=== PATIENT | female | born 1945 | race Caucasian/White ===

== ENCOUNTER → 2022-01-17 | Outpatient (CLI) | payer MEDICARE, BC ==
--- NOTE | 2022-01-17 11:53 | CA ---
Transthoracic Echo Report Name: Danielle Grimaldo Age: 77 Gender: F : 1945 Exam Date: 01/17/2022 09:39 Exam Location: [facility] Ht (in): 63 Wt (lb): 125 Ordering Physician: Rickey Johnson DO Attending/Referring Phys: Marah Martin [facility], [facility]–1983 Drawing Checker Meggan Mason RDCS Procedure CPT: Indications: R01.1 Murmur, I45.4, R42 Dizziness Cardiac Hx: Hx of murmur Technical Quality: Good Contrast 1: Total Dose (mL): Contrast 2: Total Dose (mL): MEASUREMENTS (Male / Female) Normal Values 2D ECHO LV Diastolic Diameter PLAX 3.5 cm 4.2 - 5.9 / 3.9 - 5.3 cm LV Systolic Diameter PLAX 2.8 cm IVS Diastolic Thickness 1.2 cm 0.6 - 1.0 / 0.6 - 0.9 cm LVPW Diastolic Thickness 1.1 cm 0.6 - 1.0 / 0.6 - 0.9 cm LV Relative Wall Thickness 0.7 RV Internal Dim ED PLAX 2.0 cm LV Diastolic Volume MOD BP 61.1 cm??? 67 - 155 / 56 - 104 cm??? LV Systolic Volume MOD BP 18.3 cm??? 22 - 58 / 19 - 49 cm??? LV Ejection Fraction MOD BP 70.0 % >= 55 % LV Cardiac Index MOD BP 1559.8 cm???/min???m??? LV Diastolic Volume MOD 4C 81.9 cm??? LV Systolic Volume MOD 4C 26.3 cm??? LV Ejection Fraction MOD 4C 67.9 % LV Cardiac Index MOD 4C 2026.2 cm???/min???m??? LV Diastolic Length 4C 8.2 cm LV Systolic Length 4C 5.7 cm LV Diastolic Volume MOD 2C 39.6 cm??? LV Systolic Volume MOD 2C 12.7 cm??? LV Ejection Fraction MOD 2C 67.8 % LV Cardiac Index MOD 2C 978.1 cm???/min???m??? LV Diastolic Length 2C 6.8 cm LV Systolic Length 2C 5.9 cm LA Volume 28.7 cm??? 18 - 58 / 22 - 52 cm??? M-MODE Aortic Root Diameter MM 2.8 cm LA Systolic Diameter MM 2.4 cm LA Ao Ratio MM 0.9 MV E Point Septal Separation 0.7 cm AV Cusp Separation MM 1.5 cm DOPPLER AV Peak Velocity 128.1 cm/s AV Peak Gradient 6.6 mmHg AI Peak Velocity 303.4 cm/s AI Peak Gradient 36.8 mmHg AI Pressure Half Time 368.1 ms MV Area PHT 3.2 cm??? MR Peak Velocity 436.2 cm/s MR Peak Gradient 76.1 mmHg Mitral E Point Velocity 71.3 cm/s Mitral A Point Velocity 97.1 cm/s Mitral E to A Ratio 0.7 MV Deceleration Time 234.6 ms MV E' Velocity 3.4 cm/s Mitral E to MV E' Ratio 20.7 TR Peak Velocity 226.5 cm/s TR Peak Gradient 20.5 mmHg Right Ventricular Systolic Press 24.2 mmHg PV Peak Velocity 110.9 cm/s PV Peak Gradient 4.9 mmHg PI Peak Gradient 9.4 mmHg FINDINGS Left Ventricle Mildly increased septal wall thickness. Mildly increased posterior wall thickness. Possible left bundle branch block. Left ventricular ejection fraction is estimated at 55-60 %. Grade 1 diastolic dysfunction. Right Ventricle The right ventricle is normal in size and function. Right Atrium The right atrium is normal in size. Left Atrium The left atrium is normal in size. Mitral Valve Structurally normal mitral valve without significant stenosis or prolapse. There is mild mitral regurgitation. Aortic Valve Structurally normal aortic valve without significant sclerosis or stenosis. There is trace aortic regurgitation. Tricuspid Valve Structurally normal tricuspid valve without significant stenosis. Pulmonary artery systolic pressure is normal. Mild tricuspid regurgitation. Pulmonic Valve Structurally normal pulmonic valve without significant stenosis. There is mild pulmonic regurgitation. Pericardium Normal pericardium without effusion. Aorta Normal aortic root dimension. CONCLUSIONS Mild LVH Normal left ventricular EF 55-60% Mild mitral regurgitation Trace aortic regurgitation Mild tricuspid regurgitation No pericardial effusion Previewed by: Dr. Hector Wayne DO (Electronically Signed) Final Date: 17 January 2022 11:52
--- NOTE | 2022-01-17 12:42 | US ---
EXAMINATION TYPE: US carotid duplex BILAT DATE OF EXAM: 01/17/2022 COMPARISON: NONE CLINICAL HISTORY: R42 DIZZINESS AND GIDDINESS. HTN controlled with meds. Dizzy per patient. TECHNIQUE: Carotid duplex ultrasound examination. Indirect Doppler criteria was utilized. FINDINGS: EXAM MEASUREMENTS: RIGHT: Peak Systolic Velocity (PSV) cm/sec ----- Right CCA: 72.1 ----- Right ICA: 104.7 ----- Right ECA: 143.1 ICA/CCA ratio: 1.5 RIGHT: End Diastole cm/sec ----- Right CCA: 18.2 ----- Right ICA: 32.2 ----- Right ECA: 18.7 LEFT: Peak Systolic Velocity (PSV) cm/sec ----- Left CCA: 71.2 ----- Left ICA: 138.7 ----- Left ECA: 58.4 ICA/CCA ratio: 1.9 LEFT: End Diastole cm/sec ----- Left CCA: 23.2 ----- Left ICA: 48.3 ----- Left ECA: 0.0 VERTEBRALS (direction of flow): Right Vertebral: Antegrade Left Vertebral: Antegrade Rhythm: Normal SOUS [employer] KITCHEN MANAGER NOTES: No plaque visualized. No significant stenosis. Elevated right ECA and left dista l ICA velocities. IMPRESSION: No definite significant hemodynamic stenosis visualized. Criteria for Assigning % of Stenosis / Diameter reduction (Estimation based on the indirect measurements of the internal carotid artery velocities (ICA PSV). 1. Normal (no stenosis)=ICA PSV < 125 cm/s: ratio < 2.0: ICA EDV<40 cm/s. 2. Less than 50% stenosis=ICA PSV < 125 cm/s: ratio < 2.0: ICA EDV<40 cm/s. 3. 50 to 69% stenosis=ICA PSV of 125 to 230 cm/s: ration 2.0 ? 4.0: ICA EDV 40-100 cm/s. 4. Greater than 70% stenosis to near occlusion= ICA PSV > 230 cm/s: ratio > 4.0: ICA EDV > 100 cm/s. 5. Near occlusion= ICA PSV velocities may be low or undetectable: variable ratio and ICA EDV. 6. Total occlusion=unable to detect flow.
--- NOTE | 2022-01-17 13:12 | CA ---
Stress Echo Report Danielle Grimaldo Age: 77 Gender: F : 1945 Exam Date: 01/17/2022 11:22 Exam Location: [facility] Ht (in): 63 Wt (lb): 122 Ordering Physician: Rickey Johnson DO Referring Physician: Marah Martin [facility] [employer]: Renetta May RDCS Technologist Procedure CPT: Indication: R01.1 Murmur, I45.4, R42 Dizziness ICD-9 Codes: Rhythm: Patient History: Cardiac Medications: Medications in past 24 hours: Contrast: Stress Results Protocol: Yahir Total dose(mL): Exercise Duration (min:sec): Max ST Depression (mm): Angina Score: Moreno Score: METS: 7.1 Resting HR: 61 Resting BP: 126 / 83 Peak HR: 134 Peak BP: 182 / 85 Max Predicted HR: 141 95 % Max Predicted HR Target HR: 120 Double Product: [id number] Stress Summary: BP Response: Reason for Termination: Reached target heart rate or work-load Cardiac Symptoms: Test terminated after reaching target heart rate (85% max predicted) ECG Analysis Resting ECG: Stress ECG: Arrhythmia: Echo Analysis Resting Echo: Peak Echo Analysis: MEASUREMENTS (Male/Female) Normal Values CONCLUSIONS Patient underwent exercise stress echo with a Yahir protocol treadmill stress test. Patient exercised into Stage 2 for a total of 6 minutes 5 seconds reaching a total of 7.1 METS. Patient's maximum heart rate was 134 which represented 95 % age- predicted maximum heart rate. Stress EKG portion: At baseline patient's EKG showed normal sinus rhythm with left bundle branch block. At peak exercise, EKG showed and no significant change from baseline. Stress echo portion: 2-D echocardiogram was performed in the parasternal long, personal short, apical 2 and apical four-chamber views at rest, peak exercise and in recovery. At baseline, echocardiogram showed left ventricular ejection fraction 50% without wall motion abnormalities. With peak exercise, echocardiogram shows moderate sized mid to apical anterior, apical and apical inferior hypokinesis consistent with ischemia. Conclusions: 1. Abnormal stress echo with moderate size inducible apical anterior and apical inferior hypokinesis consistent with ischemia. 2. Left bundle-branch block 3. Fair exercise capacity. Dr. Hector Wayne DO (Electronically Signed) Final Date: 17 January 2022 13:11
== END | disposition home or self-care (01) ==
LOC: RADNMMAIN 09:23
PROVIDERS: ATTEND Family Medicine
DX: I08.3 Combined rheumatic disorders of mitral, aortic and tricuspid valves (principal); I44.7 Left bundle-branch block, unspecified; R42 Dizziness and giddiness
CPT/HCPCS: 93306; 93351; 93880

== ENCOUNTER 2022-02-12 07:29 | Day surgery (SDC) | payer MEDICARE, BC ==
[2022-02-08 12:18] VITALS: BMI 21.6
[~2022-02-12 07:29] MED LIST: ALPRAZolam 0.25 MG TAB PO PRN; ALPRAZolam 0.5 MG TAB PO PRN; ASPIRIN 325 MG TAB PO STA; ATORVASTATIN 80 MG TAB PO STA; HEPARIN SODIUM,PORCINE 10,000 UNIT in SODIUM CHLORIDE 0.9% 1,000 ML IRRIGATION PRN; HEPARIN SODIUM,PORCINE 2,500 UNIT in SODIUM CHLORIDE 0.9% 250 ML IRRIGATION PRN; NITROGLYCERIN SL TABS 0.4 MG TAB SUBLINGUAL PRN; SODIUM CHLORIDE 0.9% 1,000 ML in EMPTY BAG 1 BAG IV SCH
[2022-02-12 07:58] VITALS: RESP 18; TEMP 98
[2022-02-12 08:07] LABS: Basophils # (A) 0.1 k/uL (0-0.2); Basophils % (A) 1 %; Eosinophils # (A) 0.4 k/uL (0-0.7); Eosinophils % (A) 5 %; HCT 39.2 % (34.0-46.0); HGB 12.7 gm/dL (11.4-16.0); Lymphocytes # (A) 2.5 k/uL (1.0-4.8); Lymphocytes % (A) 32 %; MCH 29.7 pg (25.0-35.0); MCHC 32.3 g/dL (31.0-37.0); MCV 91.9 fL (80.0-100.0); Mean Platelet Volume 8.2; Monocytes # (A) 0.5 k/uL (0-1.0); Monocytes % (A) 6 %; Neutrophils # (A) 4.3 k/uL (1.3-7.7); Neutrophils % (A) 55 %; Platelet Count 291 k/uL (150-450); RBC 4.26 m/uL (3.80-5.40); RDW 13.4 % (11.5-15.5); WBC 7.9 k/uL (3.8-10.6)
[2022-02-12 08:18] LABS: Calcium 9.6 mg/dL (8.4-10.2); Potassium 4.1 mmol/L (3.5-5.1)
[2022-02-12] MEDS ORDERED: HEPARIN SODIUM 1,000 UN/ML (10ML VL) ONE (11:48)
[2022-02-12] MEDS ORDERED: VERAPAMIL 2.5 MG/ML 2 ML AMP ONE (11:48)
[2022-02-12] MEDS ORDERED: fentaNYL (PF) 50 MCG/ML 2 ML AMP ONE (11:48)
[2022-02-12] MEDS ORDERED: fentaNYL (PF) 50 MCG/ML 2 ML AMP IVP ONE (12:09)
[2022-02-12] MEDS ORDERED: MIDAZOLAM 2 MG/2 ML VIAL IVP ONE ×2 (12:09→12:18)
[2022-02-12] MEDS ORDERED: LIDOCAINE 1% INJ 10MG/ML (30 ML VIAL-PF) SQ ONE (12:11)
[2022-02-12] MEDS ORDERED: VERAPAMIL SYRINGE (5 MG/10 ML) INTRAARTER ONE ×2 (12:12→12:17)
[2022-02-12] MEDS ORDERED: HEPARIN SODIUM 1,000 UN/ML (10ML VL) IVP ONE (12:19)
[2022-02-12] MEDS ORDERED: IOPAMIDOL-370 125ML BTL INJ ONE (12:25)
--- NOTE | 2022-02-12 12:32 | P.CARDCATH ---
Description of Procedure: PROCEDURES PERFORMED: Left heart catheterization, bilateral coronary angiography INDICATION: Dyspnea on exertion concerning for unstable angina CONSENT:I have discussed the risks, benefits and alternative therapies for the above-mentioned procedure and for both sedation/analgesia as well as necessary blood product administration, if indicated, as they pertain to this patient. The patient has indicated understanding and acceptance of the risks and procedures discussed. PROCEDURE: After the risks, benefits and alternatives of the above mentioned procedure explained in detail with the patient, informed consent was obtained. Patient was taken to the catheterization lab and prepped and draped in usual fashion. 1% lidocaine was used to anesthetize the right radial artery. A 6- Palestinian sheath was placed in the right radial artery using modified Seldinger technique. Left coronary angiography was performed with a 5-Palestinian JL 3.5 catheter and right coronary angiography was performed with a 5-Palestinian JR5 catheter in various views. A 5-Palestinian FR5 catheter was inserted into the left ventricle and pressure measurements were obtained. The right radial sheath was removed and a TR band was placed with hemostasis achieved. The patient tolerated the procedure well. Patient was transported back to the post catheterization holding area in stable condition. Conscious Sedation: Patient was monitored under the direct supervision of vision of myself for conscious sedation using Versed and fentanyl for a total duration of 14 minutes HEMODYNAMICS: Aortic: 144/76 LV: 141/2, LVEDP 8 SELECTIVE CORONARY ARTERIOGRAPHY: LEFT MAIN: The left main is a large caliber vessel which bifurcates into the LAD and circumflex. There is no significant stenosis. LEFT ANTERIOR DESCENDING CORONARY ARTERY: LAD is a large caliber vessel which wraps around to the apex. There is mild 10% plaquing. LEFT CIRCUMFLEX CORONARY ARTERY: Left circumflex is a moderate caliber vessel with mild 10% plaquing RIGHT CORONARY ARTERY: The right coronary artery is a large caliber vessel which gives off a PDA and PLV branch and is the dominant vessel. The RCA has an anterior takeoff. There is no significant stenosis. FINAL IMPRESSION: 1. Relatively normal coronary arteries with only 10% plaquing of the LAD and circumflex 2. Normal left sided filling pressures PLAN: 1. Aggressive risk factor modification per most recent ACC/AHA guidelines. 2. Follow-up in the office in 1-2 weeks.
[2022-02-12 15:15] VITALS: BP 128/61; PULSE 58
== END 2022-02-12 16:04 | disposition home or self-care (01) ==
LOC: CATHCVL 07:29 → EDSTATUS 09:00 → CATHCVL 16:04
PROVIDERS: ATTEND Internal Medicine
DX: I25.10 Atherosclerotic heart disease of native coronary artery without angina pectoris (principal); I10 Essential (primary) hypertension; I44.7 Left bundle-branch block, unspecified; Z20.822 Contact with and (suspected) exposure to COVID-19; Z82.49 Family history of ischemic heart disease and other diseases of the circulatory system; Z79.890 Hormone replacement therapy; Z79.899 Other long term (current) drug therapy
CPT/HCPCS: 93458; 80048; 85025; 87635; C1769 ×3; C1894; J2250; J2001; J3010; J1644; Q9967